=== PATIENT | male | born 1980 | race Two or more races ===

== ENCOUNTER 2023-06-15 04:30 | Emergency (ER) | payer MEDICAID, OTHER ==
[~2023-06-15] VITALS: Ht 175.3 cm; Wt 64.6 kg
[2023-06-15 06:55] VITALS: BP 128/79; PULSE 62; RESP 16; TEMP 98; O2SAT 98
[2023-06-15] MEDS ORDERED: FLUORESCEIN SOD OPTH TEST STRIP EACHEYE ONE (07:45)
[2023-06-15] MEDS ORDERED: TETRACAINE HCL 0.5% OPTH(EYE) SOLN 4ML EACHEYE ONE (07:45)
[2023-06-15] MEDS ORDERED: ERY05OO OP (08:27)
== END 2023-06-15 08:32 | disposition home or self-care (01) ==
LOC: ER 04:30
DX: H57.89 Other specified disorders of eye and adnexa (principal); Z79.2 Long term (current) use of antibiotics; W89.0XXA Exposure to welding light (arc), initial encounter; Y93.89 Activity, other specified; Y92.89 Other specified places as the place of occurrence of the external cause; Y99.8 Other external cause status

== ENCOUNTER 2024-03-22 19:18 | Emergency (ER) | payer MEDICAID ==
[~2024-03-22] VITALS: Ht 175.3 cm; Wt 63.4 kg
[~2024-03-22 19:18] MED LIST: ERY05OO OP
[2024-03-22 20:41] LABS: Alanine Aminotransferase 121 U/L (7-40); Albumin 4.6 g/dL (3.2-4.8); Alkaline Phosphatase 89 U/L (46-116); Anion Gap 11 (5-15); Aspartate Aminotransferase 103 U/L (13-40); Bilirubin, Total 0.5 mg/dL (0.2-1.0); Calcium 9.5 mg/dL (8.7-10.4); Carbon Dioxide 19 mmol/L (20-30); Chloride 107 mmol/L (98-107); Glucose 84 mg/dL (74-106); Potassium 3.5 mmol/L (3.5-5.1); Sodium 137 mmol/L (136-145); Total Protein 7.6 g/dL (5.7-8.2)
[2024-03-22 20:44] LABS: BUN/Creatinine Ratio 5.5 (10.0-20.0); Blood Urea Nitrogen < 5 mg/dL (9-23)
[2024-03-22 20:45] LABS: Lactic Acid w/Reflex 2.4 mmol/L (0.4-2.0)
[2024-03-22 21:04] LABS: Urine Bacteria None Seen /hpf (None Seen); Urine WBC None Seen /hpf (0 - 3)
[2024-03-22 21:13] LABS: Basophils # (auto) 0 10 ^3/uL (0-0.2); Basophils % (auto) 0.4 % (0.0-2.0); Eosinophils # (auto) 0.1 10 ^3/uL (0-0.8); Hematocrit 41.1 % (41.0-53.0); Hemoglobin 14.3 g/dL (13.5-17.5); Lymphocytes # (auto) 1.4 10 ^3/uL (0.4-5.4); Lymphocytes % (auto) 29.2 % (10.0-50.0); Mean Corpuscular Hgb Conc. 34.9 g/dL (32.0-36.0); Mean Corpuscular Volume 91.7 fL (80.0-100.0); Monocytes # (auto) 0.7 10 ^3/uL (0-1.3); Neutrophils # (auto) 2.5 10 ^3/uL (1.6-8.6); Neutrophils % (auto) 53.4 % (37.0-80.0); Nucleated Red Blood Cells % 0.1 %; Platelet Count (auto) 121 10^3/uL (140-450); Red Blood Cells 4.48 10^6/uL (4.5-5.90); Red Cell Distribution Width 15.6 % (11.8-14.3); White Blood Cell 4.7 10^3/uL (4.4-10.8)
[2024-03-22 21:31] LABS: Urine Blood Negative /uL (Negative); Urine Clarity Clear (Clear); Urine Color Light-Yellow (Yellow); Urine Protein, UAD Negative (Negative); Urine Specific Gravity 1.004 (1.001-1.035); Urine Urobilinogen Normal (Negative)
[2024-03-22] MEDS: SODIUM CHLORIDE 0.9% 1,000 ML IV ONE (22:00)
[2024-03-22 23:40] VITALS: BP 130/85; PULSE 84; TEMP 98.7
[2024-03-22] MEDS: HYDROcodone-ACET 5/325MG TAB PO ONE (23:43)
[2024-03-22 23:46] VITALS: RESP 18; O2SAT 98
== END 2024-03-23 01:39 | disposition home or self-care (01) ==
LOC: ER 19:18
DX: R56.9 Unspecified convulsions (principal); R51.9 Headache, unspecified
CPT/HCPCS: 36415; 70450; 70486; 71101; 80053; 80320; 81001; 83605; 96360; 99284; J7030

== ENCOUNTER 2024-11-14 18:32 | Emergency (ER) | payer OTHER ==
[~2024-11-14] VITALS: Ht 175.3 cm; Wt 60.9 kg
[2024-11-14 18:48] VITALS: BP 134/86; PULSE 109; RESP 16; TEMP 98.5; O2SAT 97
[2024-11-14] MEDS: OXYCODONE W/ ACETAMINOPHEN 5/325MG TABLET PO ONE (19:49)
[2024-11-14] MEDS: IBUPROFEN 600 MG TAB PO ONE (19:49)
--- NOTE | 2024-11-14 20:30 | DVH ---
CLINICAL INDICATION: [id number] FINGER INJURY TECHNIQUE: 4 radiographic views of the left 4th finger were obtained. Comparison: None FINDINGS/IMPRESSION: There is palmar subluxation of the middle phalanx of the 4th digit on the proximal phalanx with assoc iated soft tissue edema. No evidence of acute fractures.
[2024-11-14] MEDS: HYDROcodone-ACET 5/325MG TAB PO ONE (20:57)
--- NOTE | 2024-11-14 21:10 | DVH ---
CLINICAL INDICATION: post reduction mcp 4th digit TECHNIQUE: 3 radiographic views of the left hand were obtained. Comparison: XY L HAND 3V XRAY on DOS: 11/14/24 FINDINGS/IMPRESSION: There is no evidence of acute fracture or dislocation. Soft tissue swelling over the proximal interphalangeal joint left 4th finger. The visualized joint space is well maintained. The alignment is anatomical. There is no radiopaque foreign body.
[2024-11-14] MEDS ORDERED: IBUP-1456 PO (21:33)
--- NOTE | 2024-11-14 21:33 | ED.PDOC ---
Back pain HPI HPI Comments C/O LEFT 4TH FINGER PAIN S/P TRYING TO BACK UP AND FELL LAST NIGHT. DENIES NUMBNESS OR WEAKNESS Chief Complaint: Upper Extremity Time Seen by MD: 18:37 Primary Care Provider: NONE Reviewed Notes: Nurses Notes, Medications, Allergies Allergies: Coded Allergies: NO KNOWN ALLERGIES (Unverified , 06/15/23) Home Meds Active Scripts Ibuprofen (Ibuprofen) 800 Mg Tab, 800 MG PO Q8HP PRN for 4 Days, #12 TAB Prov:MISSY NAPOLES ACCOUNT COORDINATOR 11/14/24 Erythromycin (Erythromycin) 5 Mg/Gm Oin, 1 APPLIC OP TID for 10 Days, #5 GRAMS 0 Refills Prov:DEBRARAISA MANAGER COST 06/15/23 Information Source: Patient Mode of Arrival: Ambulatory Past Medical History PAST MEDICAL HISTORY: Seizures Surgical History: Denies all surgeries Family History Family History: Reviewed,noncontributory to illness Social History Smoker: Non-Smoker Alcohol: Denies ETOH Use Drugs: Denies Drug Use Constitutional: denies: chills, diaphoresis, fatigue, fever, malaise, sweats, weakness, others EENTM: denies: blurred vision, double vision, ear bleeding, ear discharge, ear drainage, ear pain, ear ringing, eye pain, eye redness, hearing loss, mouth pain, mouth swelling, nasal discharge, nose bleeding, nose congestion, nose pain, photophobia, tearing, throat pain, throat swelling, voice changes, others Respiratory: denies: cough, hemoptysis, orthopnea, SOB at rest, shortness of breath, SOB with excertion, stridor, wheezing, others Cardiovascular: denies: chest pain, dizzy spells, diaphoresis, Dyspnea on exertion, edema, irregular heart beat, left arm pain, lightheadedness, palpitations, PND, syncope, others Gastrointestinal: denies: abdomen distended, abdominal pain, blood streaked bowels, constipated, diarrhea, dysphagia, difficulty swallowing, hematemesis, melena, nausea, poor appetite, poor fluid intake, rectal bleeding, rectal pain, vomiting, others Genitourinary: denies: burning, dysuria, flank pain, frequency, hematuria, incontinence, penile discharge, penile sore, pain, testicle pain, testicle swelling, urgency, others Neurological: denies: dizziness, fainting, headache, left sided numbness, left sided weakness, numbness, paresthesia, pre-existing deficit, right sided numbness, right sided weakness, seizure, speech problems, tingling, tremors, weakness, others Musculoskeletal: reports: others (LEFT 4TH FINGER PAIN AND SWELLING); denies: back pain, gout, joint pain, joint swelling, muscle pain, muscle stiffness, neck pain Integumetry: denies: bruises, change in color, change in hair/nails, dryness, laceration, lesions, lumps, rash, wounds, others Allergic/Immunocompromised: denies: Difficulty Healing, Frequent Infections, Hives, Itching, others Hematologic/Lymphatic: denies: anemia, blood clots, easy bleeding, easy bruising, swollen glands, others Endocrine: denies: excessive hunger, excessive sweating, excessive thirst, excessive urination, flushing, intolerance to cold, intolerance to heat, unexplained weight gain, unexplained weight loss, others Psychiatric: denies: anxiety, bipolar disorder, depression, hopeless, panic disorder, schizophrenia, sleepless, suicidal, others Physical Exam General Appearance: No Apparent Distress, Normal HEENT: Pharynx Normal Neck: Full Range of Motion, Non-Tender Respiratory: Lungs Clear, No Respiratory Distress, Normal Breath Sounds Cardiovascular: JVD, No Edema, No Murmur, Normal Peripheral Pulses, Regular Rate/Rhythm Breast Exam: Deferred Gastrointestinal: No Organomegaly, Non Tender, Soft Genitalia: Deferred Pelvic: Deferred Rectal: Deferred Extremities: Normal capillary refill, Normal inspection, Normal range of motion, Non-tender, No pedal edema Musculoskeletal : Location: Left Extremity Location: Finger 4 (MODERATE EDEMA AND TENDERNESS MCP JOINT WITH ANGULATION STRENGTH SENSORY MOTION INTACT CAP REFILL LESS THAN 3 SECONDS) Apperance: Normal Neurologic: Alert, nut chopper II-XII nml as Tested, No Motor Deficits, Normal Affect, Normal Mood, No Sensory Deficits Cerebellar Function: Normal Reflexes: Normal Skin: Dry, Normal Color, Warm Lymphatic: No Adenopathy Was a procedure done? Was a procedure done?: Yes Sedation Sedation?: No Informed consent obtained: Yes Reduction Indication: Subluxation Sedation: Intra-articular, Other (MCP SUBLUXATION) Post-reduction x-ray show: Reduction, Good Alignment Informed consent obtained: Yes Risks/benefits/alt described: Yes Notes PATIENT TOLERATED WELL WITH MINIMAL PAIN Back Pain Differential Dx Differential Diagnosis: Fracture, Musculoskeletal Pain X-Ray, Labs, Meds, VS Vital Signs Date Time Temp Pulse Resp B/P (MAP) Pulse Ox O2 Delivery O2 Flow Rate FiO2 11/14/24 18:48 98.5 109 16 134/86 (102) 97 98.5 11/14/24 18:39 98.8 109 16 134/86 (102) 97 98.8 Current Medications Medications (Trade) Dose Ordered Sig/Oksana Route Start Time Stop Time Status Last Admin Oxycodone/ Acetaminophen (Percocet 5/ 325MG Tablet) 1 tab ONCE ONCE PO 11/14/24 19:30 11/14/24 19:31 DC 11/14/24 19:49 Ibuprofen (Motrin Tablet) 600 mg ONCE ONCE PO 11/14/24 19:30 11/14/24 19:31 DC 11/14/24 19:49 Acetaminophen/ Hydrocodone Bitart (Wiota 5/325MG Tab) 1 tab ONCE ONCE PO 11/14/24 20:45 11/14/24 20:46 DC 11/14/24 20:57 X-Ray, Labs, Meds, VS Comment LEFT HAND X-RAY SHOWS SUBLUXATION OF METACARPAL JOINT 4TH DIGIT NOTED FRACTURES OR OTHER DISLOCATIONS OR OSSEOUS LESIONS POSTPROCEDURAL X-RAY SHOWS NO SUBLUXATION GOOD ALIGNMENT. SEE PROCEDURE NOTE. PATIENT STATES PAIN HAS IMPROVED REQUESTING DISCHARGE FROG SPLINT PLACED.. IBUPROFEN T.I.D. P.R.N. TAKE MEDICATIONS PRESCRIBED SIDE EFFECTS DISCUSSED. FOLLOW UP WITH YOUR PCP IN 1-2 DAYS NEEDED THIS IS A REPEAT IMAGING OR MRI HIVES THAT IS PERSIST. ER RETURN PRECAUTIONS GIVEN PATIENT INDICATES UNDERSTANDING AGREES WITH DISCHARGE PLAN OF CARE. Time of 1ST Reevaluation: 21:32 Reevaluation 1ST: Improved Patient Education/Counseling: Diagnosis, Treatment, Prognosis, Need For Follow Up Family Education/Counseling: No Family Present Departure 1 Departure Time of Disposition: 21:32 Impression: Primary Impression: Subluxation of finger Qualified Codes: S63.209A - Unspecified subluxation of unspecified finger, initial encounter Disposition: HOME / SELF CARE / HOMELESS Condition: Stable e-Prescriptions Ibuprofen (Ibuprofen) 800 Mg Tab 800 MG PO Q8HP PRN for 4 Days, #12 TAB Prov: MISSY NAPOLES ACCOUNT COORDINATOR 11/14/24 Discharged With: Self Critical Care Note Critical Care Time?: No Stability Stability form required: MISSY Jc Nov 14, 2024 21:33
== END 2024-11-14 21:50 | disposition home or self-care (01) ==
LOC: ER 18:38
DX: M79.645 Pain in left finger(s) (principal); S63.235A Subluxation of proximal interphalangeal joint of left ring finger, initial encounter; W19.XXXA Unspecified fall, initial encounter; Y93.89 Activity, other specified; Y92.89 Other specified places as the place of occurrence of the external cause; Y99.8 Other external cause status
CPT/HCPCS: 26700; 26725; 73130

== ENCOUNTER 2024-11-22 16:46 | Emergency (ER) | payer OTHER ==
[~2024-11-22] VITALS: Ht 175.3 cm; Wt 62.2 kg
[2024-11-22 18:28] VITALS: BP 134/101; PULSE 106; RESP 16; TEMP 98.8; O2SAT 98
[2024-11-22] MEDS ORDERED: ACET500T58 PO (19:21)
--- NOTE | 2024-11-22 19:21 | ED.PDOC ---
Musculoskeletal HPI Comments 44-year-old male presents to ER with complaints of left 4th finger pain x6 days. Patient states that he had his left 4th finger reduced in ER here eight days ago after injuring his left 4th finger while falling and notes x6 days has been experiencing increased pain/swelling to left 4th finger. Rates his current pain a 7/10 to left 4th finger without radiation. Denies use of medications for current symptoms. Denies numbness/tingling, fever or any further symptoms/complaints Chief Complaint: Upper Extremity Time Seen by MD: 18:08 Primary Care Provider: NONE Reviewed Notes: Nurses Notes, Medications, Allergies Allergies: Coded Allergies: NO KNOWN ALLERGIES (Unverified , 06/15/23) Home Meds Active Scripts Acetaminophen (Acetaminophen) 500 Mg Tab, 500 MG PO Q4HPRN, #30 TAB 0 Refills Prov:MENG HOWELL PA 11/22/24 Erythromycin (Erythromycin) 5 Mg/Gm Oin, 1 APPLIC OP TID for 10 Days, #5 GRAMS 0 Refills Prov:RAISA RICHARDSON PHYSICAL FITNESS TEACHER 06/15/23 Discontinued Scripts Ibuprofen (Ibuprofen) 800 Mg Tab, 800 MG PO Q8HP PRN for 4 Days, #12 TAB Prov:MISSY NAPOLES MECHANICAL INTEGRITY ENGINEER 11/14/24 Information Source: Patient Mode of Arrival: Ambulatory Past Medical History PAST MEDICAL HISTORY: Seizures Surgical History: Denies all surgeries Family History Family History: Unknown Social History Smoker: Non-Smoker Alcohol: Denies ETOH Use Drugs: Denies Drug Use Lives In: Home Constitutional: denies: chills, diaphoresis, fatigue, fever, malaise, sweats, weakness, others EENTM: denies: blurred vision, double vision, ear bleeding, ear discharge, ear drainage, ear pain, ear ringing, eye pain, eye redness, hearing loss, mouth pain, mouth swelling, nasal discharge, nose bleeding, nose congestion, nose pain, photophobia, tearing, throat pain, throat swelling, voice changes, others Respiratory: denies: cough, hemoptysis, orthopnea, SOB at rest, shortness of breath, SOB with excertion, stridor, wheezing, others Cardiovascular: denies: chest pain, dizzy spells, diaphoresis, Dyspnea on exertion, edema, irregular heart beat, left arm pain, lightheadedness, palpitations, PND, syncope, others Gastrointestinal: denies: abdomen distended, abdominal pain, blood streaked bowels, constipated, diarrhea, dysphagia, difficulty swallowing, hematemesis, melena, nausea, poor appetite, poor fluid intake, rectal bleeding, rectal pain, vomiting, others Genitourinary: denies: burning, dysuria, flank pain, frequency, hematuria, incontinence, penile discharge, penile sore, pain, testicle pain, testicle swelling, urgency, others Neurological: denies: dizziness, fainting, headache, left sided numbness, left sided weakness, numbness, paresthesia, pre-existing deficit, right sided numbness, right sided weakness, seizure, speech problems, tingling, tremors, weakness, others Musculoskeletal: reports: others (As stated in HPI) Integumetry: reports: others (As stated in HPI) Allergic/Immunocompromised: denies: Difficulty Healing, Frequent Infections, Hives, Itching, others Hematologic/Lymphatic: denies: anemia, blood clots, easy bleeding, easy bruising, swollen glands, others Endocrine: denies: excessive hunger, excessive sweating, excessive thirst, excessive urination, flushing, intolerance to cold, intolerance to heat, unexplained weight gain, unexplained weight loss, others Psychiatric: denies: anxiety, bipolar disorder, depression, hopeless, panic disorder, schizophrenia, sleepless, suicidal, others Physical Exam General Appearance: No Apparent Distress HEENT: PERRL/EOMI Neck: Full Range of Motion, Non-Tender, Normal Respiratory: Chest Non-Tender, Lungs Clear, No Accessory Muscle Use, No Respiratory Distress, Normal Breath Sounds Cardiovascular: No Murmur, No Gallop, Regular Rate/Rhythm Breast Exam: Deferred Gastrointestinal: NOT DONE Genitalia: Deferred Pelvic: Deferred Rectal: Deferred Extremities: Normal capillary refill, Normal range of motion Musculoskeletal : Extremity Location: Finger 4 (TTP/mild swelling noted to left 4th finger. No deformity/nailbed injury/further skin changes noted. Patient able to fully move all fingers left hand. Pulses intact) Neurologic: Alert, urologist md II-XII nml as Tested, No Motor Deficits, Normal Affect, Normal Mood, No Sensory Deficits Cerebellar Function: Normal Reflexes: Normal Skin: Dry, Normal Color, Warm Lymphatic: No Adenopathy Was a procedure done? Was a procedure done?: No Sedation Sedation?: No Differential Diagnosis EXT Differential Diagnosis: Fracture, Dislocation, Neurovascular injury X-Ray, Labs, Meds, VS Vital Signs Date Time Temp Pulse Resp B/P (MAP) Pulse Ox O2 Delivery O2 Flow Rate FiO2 11/22/24 18:28 98.8 106 16 134/101 (112) 98 98.8 11/22/24 18:28 106 16 98 Room Air 11/22/24 17:00 98.8 106 16 134/101 (112) 98 98.8 Signed PATIENT: VASILIY KOTHARI ACCT: [id number] UNIT: [id number] : 1980 LOC: ER ROOM / BED: / AGE / SEX: 44 / M ADM STATUS: REG ER SERVICE 13 ORDERING PHYSICIAN: MENG HOWELL PROCEDURE(s): LFIN4 - L 4TH FINGER XRAY REASON: left 4th finger pain ORDER NUMBER(s): [id number], ACCESSION NUMBER(s): [id number] CLINICAL INDICATION: left 4th finger pain TECHNIQUE: 2 radiographic views of the left 4th finger were obtained. Comparison: None FINDINGS/IMPRESSION: There is no evidence of acute fracture or dislocation. Soft tissue swelling of the proximal interphalangeal joint of the left 4th finger. The visualized joint space is well maintained. The alignment is anatomical. There is no radiopaque foreign body. ATED BY: WYATT LAI Jr., DO DICTATED DATE/TIME: 11/22/241946 SIGNED BY: WYATT LAI Jr., SIGNED DATE/TIME: 11/22/241946 CC: Left 4th finger x-ray reviewed Finger splint applied Patient neurovascularly intact Previous chart visit reviewed Advised on rest/no strenuous activity, elevation and alternate ice on/off as needed for pain/swelling Advised to follow up with PCP in 1-2 days Patient verbalized understanding and agreeable with current plan of care Advised to return to ER immediately if symptoms worsen Images Reviewed?: Images reviewed and evaluated by me Time of 1ST Reevaluation: 19:14 Reevaluation 1ST: N/A Patient Education/Counseling: Diagnosis, Treatment, Prognosis, Need For Follow Up Family Education/Counseling: No Family Present Departure 1 Departure Time of Disposition: 20:20 Impression: Primary Impression: Sprain of finger, left Qualified Codes: S63.615A - Unspecified sprain of left ring finger, initial encounter Disposition: HOME / SELF CARE / HOMELESS Condition: Stable e-Prescriptions Acetaminophen (Acetaminophen) 500 Mg Tab 500 MG PO Q4HPRN, #30 TAB 0 Refills Prov: MENG HOWELL 11/22/24 Discharged With: Self Critical Care Note Critical Care Time?: No Stability Stability form required: No Heart Score Heart Score: Heart Score Response (Comments) Value History N/A 0 EKG N/A 0 Age N/A 0 Risk Factors N/A 0 Troponin N/A 0 Total 0 MENG HOWELL Nov 22, 2024 19:21
--- NOTE | 2024-11-22 19:50 | DVH ---
CLINICAL INDICATION: left 4th finger pain TECHNIQUE: 2 radiographic views of the left 4th finger were obtained. Comparison: None FINDINGS/IMPRESSION: There is no evidence of acute fracture or dislocation. Soft tissue swelling of the proximal interphalangeal joint of the left 4th finger. The visualized joint space is well maintained. The alignment is anatomical. There is no radiopaque foreign body.
== END 2024-11-22 20:22 | disposition home or self-care (01) ==
LOC: ER 16:46
DX: S63.695A Other sprain of left ring finger, initial encounter (principal); W18.39XA Other fall on same level, initial encounter; Y93.89 Activity, other specified; Y92.89 Other specified places as the place of occurrence of the external cause; Y99.8 Other external cause status
CPT/HCPCS: 29130; 73140

== ENCOUNTER 2025-01-13 17:38 | Emergency (ER) | payer OTHER ==
[~2025-01-13] VITALS: Ht 175.3 cm; Wt 57.0 kg
[~2025-01-13 17:38] MED LIST changes: +ACET500T58 PO
[2025-01-14 01:04] VITALS: BP 128/83; PULSE 86; RESP 20; TEMP 97.8; O2SAT 98
[2025-01-14 01:10] LABS: Basophils # (auto) 0 10 ^3/uL (0-0.2); Basophils % (auto) 0.7 % (0.0-2.0); Eosinophils # (auto) 0.1 10 ^3/uL (0-0.8); Eosinophils % (auto) 2.3 % (0.0-7.0); Hematocrit 39.5 % (41.0-53.0); Hemoglobin 13.5 g/dL (13.5-17.5); Lymphocytes # (auto) 1.7 10 ^3/uL (0.4-5.4); Lymphocytes % (auto) 43.9 % (10.0-50.0); Mean Corpuscular Hemoglobin 32.7 pg (28.0-32.0); Mean Corpuscular Hgb Conc. 34.3 g/dL (32.0-36.0); Mean Corpuscular Volume 95.4 fL (80.0-100.0); Monocytes # (auto) 0.5 10 ^3/uL (0-1.3); Monocytes % (auto) 12.2 % (0.0-12.0); Neutrophils # (auto) 1.6 10 ^3/uL (1.6-8.6); Neutrophils % (auto) 40.9 % (37.0-80.0); Nucleated Red Blood Cells % 0.1 %; Platelet Count (auto) 104 10^3/uL (140-450); Red Blood Cells 4.14 10^6/uL (4.5-5.90); Red Cell Distribution Width 13.5 % (11.8-14.3); White Blood Cell 3.9 10^3/uL (4.4-10.8)
[2025-01-14 01:17] LABS: Alkaline Phosphatase 80 U/L (46-116); Anion Gap 11 (5-15); BUN/Creatinine Ratio 7.9 (10.0-20.0); Calcium 9.1 mg/dL (8.7-10.4); Carbon Dioxide 21 mmol/L (20-31); Chloride 106 mmol/L (98-107); Glucose 82 mg/dL (74-106); Potassium 4.2 mmol/L (3.5-5.1); Sodium 138 mmol/L (136-145); Total Protein 7.8 g/dL (5.7-8.2)
[2025-01-14 01:18] LABS: Bilirubin, Total 0.3 mg/dL (0.2-1.0)
[2025-01-14 01:19] LABS: Alanine Aminotransferase 149 U/L (7-40); Aspartate Aminotransferase 183 U/L (<34); Blood Urea Nitrogen 6 mg/dL (9-23)
--- NOTE | 2025-01-14 02:14 | ED.PDOC ---
HPI Comments Pt came to the er with cc of congestion, and chest pain in the morning x 1mo. Pt is a&ox4 RR even and regular, vss. Pt denies n/v/d. pt report sob, spo2 98% Chief Complaint: Chest Pain Time Seen by MD: 18:23 Primary Care Provider: NONE Reviewed Notes: Nurses Notes, Medications, Allergies Allergies: Coded Allergies: NO KNOWN ALLERGIES (Unverified , 06/15/23) Home Meds Active Scripts Methylprednisolone (Medrol Dosepak) 4 Mg Jovanny, 4 MG PO UD for 6 Days, #21 TAB UAD Prov:MISSY NAPOLES DIRECTOR PACKAGING 01/14/25 Amoxicillin & Pot Clavulanate (AUGMENTIN TABLET) 875 Mg Tb, 875 MG PO BID for 7 Days, #14 TAB Prov:DONYMISSY DIRECTOR PACKAGING 01/14/25 Acetaminophen (Acetaminophen) 500 Mg Tab, 500 MG PO Q4HPRN, #30 TAB 0 Refills Prov:MENG HOWELL 11/22/24 Erythromycin (Erythromycin) 5 Mg/Gm Oin, 1 APPLIC OP TID for 10 Days, #5 GRAMS 0 Refills Prov:RAISA RICHARDSON STENOGRAPHER SECRETARY 06/15/23 Information Source: Patient Mode of Arrival: Ambulatory Past Medical History PAST MEDICAL HISTORY: Seizures Surgical History: Denies all surgeries Family History Family History: Unknown Social History Smoker: Non-Smoker Alcohol: Denies ETOH Use Drugs: Denies Drug Use Lives In: Home Constitutional: denies: chills, diaphoresis, fatigue, fever, malaise, sweats, weakness, others EENTM: reports: nasal discharge; denies: blurred vision, double vision, ear bleeding, ear discharge, ear drainage, ear pain, ear ringing, eye pain, eye redness, hearing loss, mouth pain, mouth swelling, nose bleeding, nose congestion, nose pain, photophobia, tearing, throat pain, throat swelling, voice changes, others Respiratory: denies: cough, hemoptysis, orthopnea, SOB at rest, shortness of breath, SOB with excertion, stridor, wheezing, others Cardiovascular: denies: chest pain, dizzy spells, diaphoresis, Dyspnea on exertion, edema, irregular heart beat, left arm pain, lightheadedness, palpitations, PND, syncope, others Gastrointestinal: denies: abdomen distended, abdominal pain, blood streaked bowels, constipated, diarrhea, dysphagia, difficulty swallowing, hematemesis, melena, nausea, poor appetite, poor fluid intake, rectal bleeding, rectal pain, vomiting, others Genitourinary: denies: burning, dysuria, flank pain, frequency, hematuria, incontinence, penile discharge, penile sore, pain, testicle pain, testicle swelling, urgency, others Neurological: denies: dizziness, fainting, headache, left sided numbness, left sided weakness, numbness, paresthesia, pre-existing deficit, right sided numbness, right sided weakness, seizure, speech problems, tingling, tremors, weakness, others Musculoskeletal: denies: back pain, gout, joint pain, joint swelling, muscle pain, muscle stiffness, neck pain, others Integumetry: denies: bruises, change in color, change in hair/nails, dryness, laceration, lesions, lumps, rash, wounds, others Allergic/Immunocompromised: denies: Difficulty Healing, Frequent Infections, Hives, Itching, others Hematologic/Lymphatic: denies: anemia, blood clots, easy bleeding, easy bruising, swollen glands, others Endocrine: denies: excessive hunger, excessive sweating, excessive thirst, excessive urination, flushing, intolerance to cold, intolerance to heat, unexplained weight gain, unexplained weight loss, others Psychiatric: denies: anxiety, bipolar disorder, depression, hopeless, panic disorder, schizophrenia, sleepless, suicidal, others Physical Exam General Appearance: No Apparent Distress, Normal HEENT: Normal ENT Inspection, Pharynx Normal, TMs Normal Neck: Full Range of Motion, Non-Tender, Normal Inspection Respiratory: Lungs Clear, No Respiratory Distress, Normal Breath Sounds Cardiovascular: No Edema, No JVD, No Murmur, No Gallop, Normal Peripheral Pulses, Regular Rate/Rhythm Breast Exam: Deferred Gastrointestinal: No Organomegaly, Non Tender, No Pulsatile Mass, Normal Bowel Sounds, Soft Genitalia: Deferred Pelvic: Deferred Rectal: Deferred Extremities: Normal capillary refill, Normal inspection, Normal range of motion, Non-tender, No pedal edema Musculoskeletal : Apperance: Normal Neurologic: Alert, weigh machine operator II-XII nml as Tested, No Motor Deficits, Normal Affect, Normal Mood, No Sensory Deficits Cerebellar Function: Normal Reflexes: Normal Skin: Dry, Normal Color, Warm Lymphatic: No Adenopathy Was a procedure done? Was a procedure done?: No CP Differential Dx Differential Diagnosis: Anxiety / Panic Attack, Electrolyte Disorder, [place] Differential Diagnosis: Chest Wall Pain, Esophageal reflux/spasm, Myocardial Infarction, Pneumonia X-Ray, Labs, Meds, VS Vital Signs Date Time Temp Pulse Resp B/P (MAP) Pulse Ox O2 Delivery O2 Flow Rate FiO2 01/14/25 01:04 97.8 86 20 128/83 (98) 98 97.8 Lab Test 01/14/25 01:45 01/14/25 00:56 Range/Units Troponin I High Sensitivity < 3 L < 3 L </=54 ng/L White Blood Count 3.9 L 4.4-10.8 10^3/uL Red Blood Count 4.14 L 4.5-5.90 10^6/uL Hemoglobin 13.5 13.5-17.5 g/dL Hematocrit 39.5 L 41.0-53.0 % Mean Corpuscular Volume 95.4 80.0-100.0 fL Mean Corpuscular Hemoglobin 32.7 H 28.0-32.0 pg Mean Corpuscular Hemoglobin Concent 34.3 32.0-36.0 g/dL Red Cell Distribution Width 13.5 11.8-14.3 % Platelet Count 104 L 140-450 10^3/uL Mean Platelet Volume 7.4 6.9-10.8 fL Neutrophils (%) (Auto) 40.9 37.0-80.0 % Lymphocytes (%) (Auto) 43.9 10.0-50.0 % Monocytes (%) (Auto) 12.2 H 0.0-12.0 % Eosinophils (%) (Auto) 2.3 0.0-7.0 % Basophils (%) (Auto) 0.7 0.0-2.0 % Neutrophils # (Auto) 1.6 1.6-8.6 10 ^3/uL Lymphocytes # (Auto) 1.7 0.4-5.4 10 ^3/uL Monocytes # (Auto) 0.5 0-1.3 10 ^3/uL Eosinophils # (Auto) 0.1 0-0.8 10 ^3/uL Basophils # (Auto) 0 0-0.2 10 ^3/uL Nucleated Red Blood Cells 0.1 % Sodium Level 138 136-145 mmol/L Potassium Level 4.2 3.5-5.1 mmol/L Chloride Level 106 98-107 mmol/L Carbon Dioxide Level 21 20-31 mmol/L Anion Gap 11 5-15 Blood Urea Nitrogen 6 L 9-23 mg/dL Creatinine 0.76 0.700-1.30 mg/dL Glomerular Filtration Rate Calc 113 >90 mL/min BUN/Creatinine Ratio 7.9 L 10.0-20.0 Serum Glucose 82 74-106 mg/dL Calcium Level 9.1 8.7-10.4 mg/dL Total Bilirubin 0.3 0.2-1.0 mg/dL Aspartate Amino Transferase (AST) 183 H <34 U/L Alanine Aminotransferase (ALT) 149 H 7-40 U/L Alkaline Phosphatase 80 46-116 U/L Total Protein 7.8 5.7-8.2 g/dL Albumin 5.0 H 3.2-4.8 g/dL X-Ray, Labs, Meds, VS Comment CHEST X-RAY SHOWS NO ACUTE CARDIOPULMONARY FINDINGS. TROP NEGATIVE X 2 , EKG SHOWS NO ACUTE FINDINGS OR ECTOPY. LIKELY URI. TRIAL OF ABX AND MEDROL DOSE PACK SENT TO PHARMACY. ADVISED TO TAKE MEDICATIONS PRESCRIBED SIDE EFFECTS DISCUSSED. REST INCREASE P.O. FLUIDS WITH ELECTROLYTES CONSIDER TAKING [id number] MUCINEX INCREASE YOUR WATER INTAKE. ADVISED TO FOLLOW UP WITH HIS PCP IN 2-3 DAYS. ER RETURN PRECAUTIONS GIVEN PATIENT INDICATES UNDERSTA NDING AND AGREES WITH DISCHARGE PLAN OF CARE. Time of 1ST Reevaluation: 01:25 Reevaluation 1ST: Unchanged Time of 2ND Reevaluation: 04:38 Reevaluation 2ND: Improved Patient Education/Counseling: Diagnosis, Treatment, Prognosis, Need For Follow Up Family Education/Counseling: No Family Present SEPSIS Sepsis Screen Date sepsis recognized/suspect: Jan 14, 2025 Time Sepsis recognized/suspect: 2349 Recent Procedure: No On Antibiotic Therapy: No Respiratory Rate >20: No Heart Rate >90: No Temp<36 C (96.8 F) or >38.3 C: No SBP <90 or MAP <65 mmHG: No New Acute Mental Status Change: No Is the patient on CPAP, BIPAP,: No Physician Orders Chest Two Views Routine (01/14/25 00:46) Urinalysis (01/14/25 00:46) Drug Screen (01/14/25 00:46) Electrocardigram (01/14/25 00:55) Vital Signs Date Time Temp Pulse Resp B/P (MAP) Pulse Ox O2 Delivery O2 Flow Rate FiO2 01/14/25 01:04 97.8 86 20 128/83 (98) 98 97.8 Laboratory Tests Test 01/14/25 00:56 White Blood Count 3.9 10^3/uL (4.4-10.8) L Departure 1 Departure Time of Disposition: 04:38 Impression: Primary Impression: Upper respiratory infection Qualified Codes: J06.9 - Acute upper respiratory infection, unspecified Additional Impression: Musculoskeletal chest pain Disposition: HOME / SELF CARE / HOMELESS Condition: Stable e-Prescriptions Methylprednisolone (Medrol Dosepak) 4 Mg Jovanny 4 MG PO UD for 6 Days, #21 TAB UAD Prov: MISSY NAPOLES 01/14/25 Amoxicillin & Pot Clavulanate (AUGMENTIN TABLET) 875 Mg Tb 875 MG PO BID for 7 Days, #14 TAB Prov: MISSY NAPOLES 01/14/25 Discharged With: Self Critical Care Note Critical Care Time?: No Stability Stability form required: No Heart Score Heart Score: Heart Score Response (Comments) Value History Slightly Suspicious 0 EKG Normal 0 Age 45-64 1 Risk Factors No known risk factors 0 Troponin Normal limit 0 Total 1 MISSY NAPOLES Jan 14, 2025 02:14
--- NOTE | 2025-01-14 04:30 | DVH ---
XY CHEST TWO VIEWS ROUTINE CLINICAL HISTORY: chest pain COMPARISON: None TECHNIQUE: Frontal and lateral view of the chest was obtained FINDINGS: Lines and Tubes: None Lungs: No focal consolidation. Pleura: No effusion. No pneumothorax. Cardiomediastinal contours: Unremarkable Bones: No acute osseous abnormality. IMPRESSION: No acute cardiopulmonary disease.
[2025-01-14] MEDS ORDERED: AUG875T PO (04:40)
[2025-01-14] MEDS ORDERED: METH4PAK PO (04:40)
--- NOTE | 2025-01-17 12:16 | ECG ---
[facility] Test Date: 2025-01-14 Test Time: 00:51:06 Pat Name: VASILIY KOTHARI Department: ER Room: Gender: M [employer]im[employer]: : 1980 Requested By: MISSY NAPOLES Order Number: [id number] Reading MD: Maik Cherry Measurements Intervals [place] Rate: 68 P: 79 AL: 173 QRS: 80 QRSD: 87 T: 76 QT: 391 QTc: 416 Interpretive Statements Sinus rhythm Biatrial enlargement Probable anterior infarct, old Electronically Signed On 01-18-2025 22:32:54 PDT by Maik Cherry Please click the below link to view image of tracing.
== END 2025-01-14 04:50 | disposition home or self-care (01) ==
LOC: ER 17:42
DX: J06.9 Acute upper respiratory infection, unspecified (principal); R07.89 Other chest pain; Z79.899 Other long term (current) drug therapy
CPT/HCPCS: 36415; 71046; 80053; 84484; 85025; 93005